=== PATIENT | male | born 1975 | race Caucasian/White ===

== ENCOUNTER → 2020-04-22 | Outpatient (CLI) | payer OTHER ==
[~2020-04-22] MED LIST: BUPROPION PO; BUSPIRONE HCL7.5 MG PO; CARVEDILOL6.25 MG PO; HUMALOG SQ; LISINOPRIL10 MG PO; OMEPRAZOLE20 M1 PO; TOUJEO SQ
== END ==
LOC: KOH-I 08:57
DX: M25.551 Pain in right hip (principal); G89.29 Other chronic pain; M16.11 Unilateral primary osteoarthritis, right hip
CPT/HCPCS: 73502; 73562